=== PATIENT | male | born 1955 | race Caucasian/White ===

== ENCOUNTER 2017-06-17 15:26 | Emergency (ER) | payer OTHER ==
[~2017-06-17] VITALS: Ht 180.3 cm; Wt 74.5 kg
[2017-06-17 15:29] VITALS: BP 153/77; PULSE 88; RESP 18; TEMP 98.7; O2SAT 98
--- NOTE | 2017-06-17 16:43 | PD ---
HPI Chief Complaint: Musculoskeletal Complaint Time Seen by Provider: 16:19 Travel History International Travel<30 days: No Contact w/Intl Traveler<30days: No Traveled to known affect area: No History of Present Illness HPI This is a 61-year-old male who presents to the emergency department with 2 weeks of swelling behind his left leg, constant, moderate severity, increasing in size, worse when he flexes his leg. Patient denies any recent long trips. He was seen in the [place] emergency department and referred here for ultrasound imaging. [facility] Past Medical History Medical History: Denies Significant Hx Diminished Hearing: No Influenza Vaccination: No Past Surgical History Appendectomy: Yes Social History Alcohol Use: Yes (OCCASIONAL) Tobacco Use: No Substance Use: No Allergies-Medications (Allergen,Severity, Reaction): Coded Allergies: No Known Allergies (Unverified , 06/17/17) Reported Meds & Prescriptions Reported Meds & Active Scripts Active No Active Prescriptions or Reported Medications Review of Systems General / Constitutional: No: Fever, Chills Respiratory: No: Shortness of Breath Physical Exam Narrative GENERAL: Well-appearing, no acute distress, nontoxic SKIN: Warm and dry. HEAD: Atraumatic. Normocephalic. ENT: No nasal bleeding or discharge. Moist mucous membranes MUSCULOSKELETAL: Firm round cystlike mass along the posterior aspect of the left knee, nontender with no warmth NEUROLOGICAL: Awake and alert. No obvious cranial nerve deficits. Motor grossly within normal limits. Normal speech. PSYCHIATRIC: Appropriate mood and affect; insight and judgment normal. Data Data Last Documented VS Vital Signs Date Time Temp Pulse Resp B/P (MAP) Pulse Ox O2 Delivery O2 Flow Rate FiO2 06/17/17 15:29 98.7 88 18 153/77 (102) 98 Orders Orders Us Leg Venous Doppler (06/17/17 ) Knee, Complete (4vws) (06/17/17 ) [facility] Medical Decision Making Medical Screen Exam Complete: Yes Emergency Medical Condition: Yes Differential Diagnosis Suarez cyst, simple cyst, tumor, DVT Narrative Course This is a 61-year-old male who presents to the emergency department with a cystlike structure behind his left knee. He was transferred from the [place] emergency department for ultrasound. I ordered an ultrasound and an x-ray of the knee. It will be followed up by oncoming provider. Scripts No Active Prescriptions or Reported Meds Marizol Elias MD Jun 17, 2017 16:43
--- NOTE | 2017-06-17 16:57 | RADRPT ---
EXAM DATE/TIME: 06/17/2017 16:45 [facility] COMPARISON: No previous studies available for comparison. INDICATIONS : Lump posterior knee, denies injury MEDICAL HISTORY : None. SURGICAL HISTORY : None. ENCOUNTER: Initial ACUITY: 2 weeks PAIN SCORE: 0/10 LOCATION: Left Knee FINDINGS: Four view examination of the left knee demonstrates no evidence of fracture or dislocation. Bony min eralization is normal. The articular surfaces are intact. The suprapatellar soft tissues have a nor mal configuration. CONCLUSION: Unremarkable examination of the left knee. Orion Main MD on June 17, 2017 at 16:53 Board Certified Radiologist. This report was verified electronically.
--- NOTE | 2017-06-17 17:41 | RADRPT ---
EXAM DATE/TIME: 06/17/2017 17:13 [facility] COMPARISON: No previous studies available for comparison. INDICATIONS : Left leg pain and swelling. MEDICAL HISTORY : Left leg pain and swelling. SURGICAL HISTORY : Appendectomy. ENCOUNTER: Initial ACUITY: 2 weeks PAIN SCORE: 1/10 LOCATION: Left leg. TECHNIQUE: Venous ultrasound of the leg was performed from the inguinal ligament to the proximal calf. Real-time, color Doppler and spectral tracing, compression and augmentation techniques were us ed. FINDINGS: There is normal compressibility of the deep venous system from the inguinal region to the proximal ca lf. No echogenic clot is seen in the lumen of the common femoral, femoral, popliteal, and posterior tibial veins. There is a normal response of the venous system to proximal and distal augmentation an d respiration. There is a large Suarez's cyst popliteal fossa 8.2 x 5.0 x 1.9 cm CONCLUSION: No evidence of DVT. Large Suarez's cyst posterior to the popliteal fossa Orion Main MD on June 17, 2017 at 17:37 Board Certified Radiologist. This report was verified electronically.
--- NOTE | 2017-06-17 17:52 | PD ---
Physical Exam Narrative Patient was seen by ED physician and signed out to me. Data Data Last Documented VS Vital Signs Date Time Temp Pulse Resp B/P (MAP) Pulse Ox O2 Delivery O2 Flow Rate FiO2 06/17/17 15:29 98.7 88 18 153/77 (102) 98 Orders Orders Us Leg Venous Doppler (06/17/17 ) Knee, Complete (4vws) (06/17/17 ) Ed Discharge Order (06/17/17 17:48) MDM Supervised Visit with FERMIN: No Interpretation(s) Last Impressions Lower Extremity Ultrasound 06/17/17 0000 Signed Impressions: Service Date/Time: Saturday, June 17, 2017 17:13 - CONCLUSION: No evidence of DVT. Large Suarez's cyst posterior to the popliteal fossa Orion Main MD Knee X-Ray 06/17/17 0000 Signed Impressions: Service Date/Time: Saturday, June 17, 2017 16:45 - CONCLUSION: Unremarkable examination of the left knee. Orion Main MD Diagnosis Primary Impression: Suarez's cyst Qualified Codes: M71.22 - Synovial cyst of popliteal space [Suarez], left knee Patient Instructions: General Instructions Additional Instruction: Tylenol or Advil for pain. Follow up with an orthopedist. Med/Other Pt SpecificInfo: No Change to Meds Scripts No Active Prescriptions or Reported Meds Disposition: 01 DISCHARGE HOME Condition: Stable Atilio Mayes MD Jun 17, 2017 17:52
== END 2017-06-17 17:59 | disposition home or self-care (01) ==
LOC: NEPD 15:26
DX: M71.22 Synovial cyst of popliteal space [Baker], left knee (principal); R60.0 Localized edema
CPT/HCPCS: 73564; 93971; 99281; 99283